=== PATIENT | female | born 1960 | race Caucasian/White ===

== ENCOUNTER 2022-06-18 10:52 | Outpatient (CLI) | payer BC | END 2022-06-18 10:53 | disposition home or self-care (01) | LOC: CSHRAD 10:52 | PROVIDERS: ATTEND Nurse Practitioner Family | DX: J98.01 Acute bronchospasm (principal) | CPT/HCPCS: 71046 ==

== ENCOUNTER 2024-03-29 11:36 | Outpatient (CLI) | payer BC | END 2024-03-29 11:37 | disposition home or self-care (01) | LOC: CSHRAD 11:36 | PROVIDERS: ATTEND Internal Medicine | DX: S69.91XA Unspecified injury of right wrist, hand and finger(s), initial encounter (principal); M15.1 Heberden's nodes (with arthropathy); M79.89 Other specified soft tissue disorders ==